=== PATIENT | female | born 1950 | race Caucasian/White ===

== ENCOUNTER → 2020-06-09 | Outpatient (CLI) | payer MEDICARE, OTHER | END | disposition home or self-care (01) | LOC: CFH 09:50 | PROVIDERS: ATTEND Specialist | DX: Z12.31 Encounter for screening mammogram for malignant neoplasm of breast (principal) | CPT/HCPCS: 77063; 77067 ==

== ENCOUNTER 2020-07-02 12:24 | Outpatient (CLI) | payer MEDICARE, OTHER | END 2020-07-02 23:59 | disposition home or self-care (01) | LOC: CFH 12:24 | PROVIDERS: ATTEND Obstetrics & Gynecology | DX: N64.89 Other specified disorders of breast (principal) | CPT/HCPCS: 76642; 77065 ==